=== PATIENT | female | born 1990 | race African-American/Black ===

== ENCOUNTER 2017-07-23 01:01 | Emergency (ER) | payer MEDICAID ==
[~2017-07-23] VITALS: Ht 165.1 cm; Wt 110.2 kg
[2017-07-23 01:48] LABS: Urine Bacteria NONE SEEN /hpf (None Seen); Urine Blood Negative /uL (Negative); Urine Specific Gravity 1.002 (1.001-1.035); Urine WBC <1 /hpf (0 - 5)
[2017-07-23 02:08] LABS: Basophils # (auto) 0.1 uL; Basophils % (auto) 1.2 % (0.0-2.0); Eosinophils # (auto) 0.1 uL; Eosinophils % (auto) 2.9 % (0.0-7.0); Hematocrit 38.2 % (36.0-46.0); Hemoglobin 12.4 g/dL (12.2-16.2); Lymphocytes % (auto) 43.4 % (10.0-50.0); Mean Corpuscular Hemoglobin 28.8 pg (28.0-32.0); Mean Corpuscular Hgb Conc. 32.5 g/dL (32.0-36.0); Mean Corpuscular Volume 88.5 fL (80.0-100.0); Monocytes # (auto) 0.5 uL; Monocytes % (auto) 9.8 % (0.0-12.0); Neutrophils % (auto) 42.7 % (37.0-80.0); Nucleated Red Blood Cells % 0.1 %; Platelet Count (auto) 245 10^3/uL (140-450); Red Blood Cells 4.31 10^6/uL (4.0-5.20); Red Cell Distribution Width 15.2 % (11.8-14.3); White Blood Cell 4.7 10^3/uL (4.4-10.8)
[2017-07-23 02:21] LABS: Alanine Aminotransferase 17 U/L (13-56); Albumin 3.2 g/dL (3.4-5.0); Anion Gap 5 (5-15); Aspartate Aminotransferase 15 U/L (15-37); Blood Urea Nitrogen 17 mg/dL (7-18); Calcium 8.7 mg/dL (8.5-10.1); Carbon Dioxide 25 mmol/L (21-32); Chloride 110 mmol/L (98-107); GFR African American 133 mL/min; GFR Non-African American 110 mL/min; Glucose 88 mg/dL (74-106); Sodium 140 mmol/L (136-145)
[2017-07-23 02:24] LABS: Alkaline Phosphatase 66 U/L (45-117); Bilirubin, Total 0.2 mg/dL (0.2-1.0); Total Protein 7.5 g/dL (6.4-8.2)
[2017-07-23 06:37] VITALS: BP 131/96
[2017-07-23] MEDS ORDERED: IPRATROPIUM BROM 0.5 MG/2.5ML INH SOL NEB ONE (07:00)
[2017-07-23] MEDS ORDERED: ALBUTEROL SULF 2.5 MG/0.5ML(0.5%) NEB SOLN NEB ONE (07:00)
== END 2017-07-23 08:03 | disposition home or self-care (01) ==
LOC: ER 01:04
DX: J45.901 Unspecified asthma with (acute) exacerbation (principal)
CPT/HCPCS: 36415; 71045; 80053; 81001; 84484; 84702; 85025; 94640

== ENCOUNTER 2019-08-30 11:40 | Emergency (ER) | payer SELFPAY ==
[~2019-08-30] VITALS: Ht 167.6 cm; Wt 114.3 kg
[2019-08-30 12:50] VITALS: BP 157/103
== END 2019-08-30 13:40 | disposition home or self-care (01) ==
LOC: ER 11:40
DX: L24.9 Irritant contact dermatitis, unspecified cause (principal)

== ENCOUNTER 2019-11-22 12:28 | Emergency (ER) | payer MEDICAID ==
[~2019-11-22] VITALS: Ht 167.6 cm; Wt 116.1 kg
[2019-11-22 15:03] VITALS: BP 160/98
== END 2019-11-22 15:20 | disposition home or self-care (01) ==
LOC: ER 12:28
DX: J02.9 Acute pharyngitis, unspecified (principal); R09.82 Postnasal drip; J45.909 Unspecified asthma, uncomplicated; Z88.8 Allergy status to other drugs, medicaments and biological substances

== ENCOUNTER 2019-12-21 09:35 | Emergency (ER) | payer MEDICAID ==
[~2019-12-21] VITALS: Ht 167.6 cm; Wt 122.0 kg
[2019-12-21 09:51] VITALS: BP 152/106
== END 2019-12-21 10:15 | disposition home or self-care (01) ==
LOC: ER 09:35
DX: H60.92 Unspecified otitis externa, left ear (principal)